=== PATIENT | female | born 1995 | race Caucasian/White ===

== ENCOUNTER 2016-04-28 17:31 | Inpatient (IN) | payer OTHER ==
[~2016-04-28] VITALS: Ht 165.1 cm; Wt 86.8 kg
[2016-04-28 17:39] VITALS: Ht 165.1 cm; Wt 86.8 kg
[2016-04-28 17:40] VITALS: BP 109/59; PULSE 83; RESP 18
--- NOTE | 2016-04-28 19:10 | RADRPT ---
PROCEDURE: US OB. US OB Estimated Weight CLINICAL INDICATION: Absent heart tones TECHNIQUE: Multiple sonographic images of the pelvis were obtained. The images were reviewed on a PACS workstation. COMPARISON: No prior studies are available for comparison. FINDINGS: There is a single viable intrauterine gestation. Cardiac activity is not detected. There is a breech presentation. Measurements were made in order to determine age. The results are as follows: BPD =5.1 cm. HC =18.6 cm. AC =29.6 cm. FL =3.7 cm. Estimated gestational age of approximately 24 weeks and 3 days. The estimated date of delivery is 08/15/2016. Estimated delivery date by last menstrual period 07/11 The EFW = 1116 grams . There is ascites in the abdomen. There is a large complex fluid collection involving the head and n katie, measuring up to 10 by 7 cm. The placenta is posterior, grade 0. There is no evidence for an abruption or placenta previa. IMPRESSION: 1. Absent heart tones, compatible with failed . 2. Ascites within the abdomen, suspicious for hydrops fetalis. There is a complex fluid husam ection in the head neck region likely reflecting hydrops as well, 10 x 7 cm. RPTAT: HBST .Jesus Muñiz MD, MD Date Time Electronically viewed and signed by .Jesus Muñiz MD, on 04/28/2016 19:09 .T/
[2016-04-28 19:58] LABS: ADD SCAN DIFF NO
[2016-04-28 20:01] LABS: BASOPHILS % 0.2 % (0.0-2.0); EOSINOPHILS # 0.1 10^3/ul (0.0-0.5); EOSINOPHILS % 0.8 % (0.0-7.0); HEMATOCRIT 31.8 % (37.0-47.0); HEMOGLOBIN 10.9 g/dl (12.0-16.0); LYMPHOCYTES # 1.4 10^3/ul (0.8-2.9); LYMPHOCYTES % 16.6 % (18.0-55.0); MEAN CORPUSCULAR HEMOGLOBIN 31.9 pg (29.0-33.0); MEAN CORPUSCULAR HGB CONC 34.3 g/dl (32.0-37.0); MEAN PLATELET VOLUME 11.3 fl (7.4-10.4); MONOCYTE # 0.7 10^3/ul (0.3-0.9); MONOCYTES % 7.7 % (0.0-13.0); NEUTROPHIL # 6.3 10^3/ul (1.6-7.5); NEUTROPHILS % 73.6 % (30.0-74.0); PLATELET COUNT 212 10^3/UL (140-415); RED BLOOD COUNT 3.42 10^6/ul (4.20-5.40); RED CELL DISTRIBUTION WIDTH 12.6 % (11.5-14.5); WHITE BLOOD COUNT 8.5 10^3/ul (4.8-10.8)
[2016-04-28 20:13] LABS: INR 0.94; PARTIAL THROMBOPLASTIN TIME 27.7 Sec (25.0-35.0); PROTIME 12.6 Sec (12.2-14.2)
[2016-04-28 20:18] LABS: ALBUMIN 3.8 g/dl (3.3-4.9)
[2016-04-28 20:19] LABS: CHLORIDE 104 mmol/L (97-110); POTASSIUM 3.6 mmol/L (3.5-5.1); SODIUM 141 mmol/L (135-144)
[2016-04-28 20:21] LABS: ALBUMIN/GLOBULIN RATIO 1.15; ALKALINE PHOSPHATASE 123 IU/L (42-121); ANION GAP 17 (8-16); ASPARTATE AMINO TRANSFERASE 22 IU/L (15-46); BILIRUBIN,INDIRECT 0.5 mg/dl (0-1.1); BILIRUBIN,TOTAL 0.5 mg/dl (0.2-1.3); CARBON DIOXIDE 24 mmol/L (21-31); CREATININE 0.45 mg/dl (0.44-1.00); TOTAL PROTEIN 7.1 g/dl (6.1-8.1)
[2016-04-28 20:22] LABS: ALANINE AMINOTRANSFERASE 18 IU/L (13-69); BLOOD UREA NITROGEN 7 mg/dl (7-20); GLUCOSE 77 mg/dl (70-220)
[2016-04-28 20:29] LABS: ADD UMIC YES; URINE BILIRUBIN (Dip) NEGATIVE (NEGATIVE); URINE BLOOD (Dip) NEGATIVE (NEGATIVE); URINE COLOR LT. YELLOW (YELLOW); URINE GLUCOSE (Dip) NEGATIVE (NEGATIVE); URINE KETONES (Dip) NEGATIVE (NEGATIVE); URINE LEUKOCYTE ESTERASE (Dip) 2+ (NEGATIVE); URINE NITRITE (Dip) NEGATIVE (NEGATIVE); URINE TOTAL PROTEIN (Dip) NEGATIVE (NEGATIVE); URINE UROBILINOGEN (Dip) 0.2 E.U./dL (0.1-1.0)
[2016-04-28 20:44] LABS: BACTERIA,URINE MODERATE; SQUAMOUS EPITHELIAL CELL,UR MODERATE; URINE RBCS 0-2 /HPF (0)
[2016-04-28] MEDS ORDERED: OXYTOCIN 30 UNITS/LR 500 ML IV PRN (21:30)
[2016-04-28] MEDS ORDERED: LACTATED RINGER'S 1,000 ML IV PRN (21:30)
[2016-04-28] MEDS ORDERED: IBUPROFEN 600 MG TAB PO PRN (21:30)
[2016-04-28] MEDS ORDERED: ACETAMINOPHEN/CODEINE #3 TAB PO PRN (21:30)
[2016-04-28] MEDS ORDERED: METHYLERGONOVINE 0.2 MG INJ IM PRN (21:30)
[2016-04-28] MEDS ORDERED: MISOPROSTOL 200 MCG TAB PR PRN (21:30)
[2016-04-28] MEDS ORDERED: CARBOPROST 250 MCG INJ IM PRN (21:30)
[2016-04-28] MEDS ORDERED: OXYTOCIN 30 UNITS/LR 500 ML IV SCH ×2 (21:30)
[2016-04-28] MEDS ORDERED: LIDOCAINE 1% (MPF) 30 ML INJ INJ PRN (21:30)
[2016-04-28] MEDS: LACTATED RINGER'S 1,000 ML IV SCH (21:51)
--- NOTE | 2016-04-28 22:11 | HP ---
Date/Time of Note Date/Time of Note DATE: 04/28/16 TIME: 22:11 OB - History Hx of Present Free Text/Dictation Patient is here 20 years old here today was sent from the office Noted to have demise. JONAH: by her reported JONAH as well as ultrasound at [facility] She had a visit at Dr. Quesada in his office and was found there is no heart beat. Patient was then presented to the hospital for evaluation. Patient started her care first with Dr. Ibrahim. Then lost insurance. after received insurance presented to Dr. Quesada office. She had still issues for her visit coverage due to insurance. As a courtesy she had a heart tone that could not been found. She was informed about demise. Patient reports had a diagnosis for cardiac abnormality in early . She had an official ultrasound here at [facility] that confirmed IUFD as well as Hydrops. Patient had not limited care. She was noted to be after an episode of drug usage when she had been sick and took to ED. She was informed that she is about 2 weeks . She was diagnosed with polysubstance abuse. She admits that she has been using lots of weeds and speed prior to , but denies using any after she noted she is . She was diagnosed with cardiac abnormalities with [facility] prior to change her insurance. Estimated Due Date: Aug 07, 2016 : 1 Para: 0 Spontaneous : 0 Therapeutic : 0 Care: Limited Care Ultrasounds: Abnormal US findings Abnormal Ultrasound Findings: demise and Hydrops Other Concerns: cardiac abnormality demise Poly Substance abuse in Past Family/Social History * Past Medical, Surgical, Family and Obstetric Histories reviewed from chart. OB Admission Exam Vital Signs Vital Signs Vital Signs Date Time Temp Pulse Resp B/P Pulse Ox O2 Delivery O2 Flow Rate FiO2 04/28/16 17:40 97.7 83 18 109/59 Room Air Physical Exam HEENT: WNL Heart: Rhythm Normal Lungs: Clear Abdomen: WNL Extremities: Normal Cervical Dilatation: 1cm Effacement: Other (60) Station: Ballotable Membranes: Intact (No heart tone) Contractions on Admission: None Last 72 hourBlood Glucose PROCEDURE: US OB. US OB Estimated Weight CLINICAL INDICATION: Absent heart tones TECHNIQUE: Multiple sonographic images of the pelvis were obtained. The images were reviewed on a PACS workstation. COMPARISON: No prior studies are available for comparison. FINDINGS: There is a single viable intrauterine gestation. Cardiac activity is not detected. There is a breech presentation. Measurements were made in order to determine age. The results are as follows: BPD = 5.1 cm. HC = 18.6 cm. AC = 29.6 cm. FL = 3.7 cm. Estimated gestational age of approximately 24 weeks and 3 days. The estimated date of delivery is 08/15/2016. Estimated delivery date by last menstrual period 08/07/2016 The EFW = 1116 grams . There is ascites in the abdomen. There is a large complex fluid collection involving the head and neck, measuring up to 10 by 7 cm. The placenta is posterior, grade 0. There is no evidence for an abruption or placenta previa. IMPRESSION: 1. Absent heart tones, compatible with failed . 2. Ascites within the abdomen, suspicious for hydrops fetalis. There is a complex fluid collection in the head neck region likely reflecting hydrops as well, 10 x 7 cm. Last 72 hours Lab Results CBC & BMP 04/28/16 19:35 Liver Function Test 04/28/16 19:35 Alanine Aminotransferase (ALT/SGPT) 18 Albumin 3.8 Alkaline Phosphatase 123 H Aspartate Amino Transf (AST/SGOT) 22 Direct Bilirubin 0.00 Total Protein 7.1 OB Assessment/Plan Other Assessment: demise Severe Hydrops History of cardiac abnormality Poly substance abuse , Speed and [place]. Other plan: Discussed with the patient about all the options after receiving normal coags including fibrinogen and FDP including expectant management for the next 2 weeks vs induction of labor. Risks and benefits of each discussed with the patient. Risks of coagulopathy with skilled nursing expectant management with demise discussed. Desires to proceed with induction of labor. Consider cytotec 400 mcg Cytotec every 3 hours x 5 doses sublingual Anticipate Work up for demise, including , RPR, TSH, HbA1c, Parvovirus, placenta to path and culture. Brooks test. Fetus to autopsy as well as cord for tox screen.BILLY. JONH CRWES MD Apr 28, 2016 22:11
--- NOTE | 2016-04-28 22:20 | TRIAGE ---
OB Triage Datetime Report Generated by CPN: 04/28/2016 22:19 Datetime: 04/28/2016 21:51 Stage of : Labor Datetime: 04/28/2016 20:42 Vaginal Exam Dilatation (cms): 1.0 Effacement (%): 50 Station: -4 Exam By: DR. ARDALAN Datetime: 04/28/2016 20:10 Pain Assessment Pain Scale: 5 Pain Presence: Intermittent Pain Type: Cramping Pain Relief Measures: Comfort Measures Datetime: 04/28/2016 20:00 Labor Evaluation Frequency: 2-4 Monitor Mode: External Duration (sec)2399: 40-50 Pattern: Normal: <= 5 Contractions in 10 Minutes Heart Rate FHR Baseline Rate: 0 Comments: DEMISE Datetime: 04/28/2016 19:08 Labor Evaluation Frequency: OCCAS Monitor Mode: External Duration (sec)2399: 40-70 Quality: Mild Pattern: Normal: <= 5 Contractions in 10 Minutes Resting Tone [place]: Relaxed Datetime: 04/28/2016 18:19 Labor Evaluation Frequency: OCCAS Monitor Mode: External Duration (sec)2399: 40-60 Quality: Mild Pattern: Normal: <= 5 Contractions in 10 Minutes Resting Tone [place]: Relaxed Datetime: 04/28/2016 17:46 Assessment Type: Admission Assessment Maternal Assessment Level of Consciousness: Fully Conscious DTR's/Clonus: DTRs 2+; No Clonus Headache: Denies Blurred Vision: No Respiratory Effort: Unlabored; Regular Rhythm; Equal Expansion Breath Sounds, Left: Clear and Equal Breath Sounds, Right: Clear and Equal Nausea/Vomiting: Denies RUQ Epigastric Pain: Denies Lower Extremities Edema: None Degree: None Upper Extremities Edema: None Degree: None Facial Edema: None Fall Risk Assessment History of Falling: (0) No Secondary Diagnosis: (0) No Ambulatory Aid: (0) Bedrest/Nurse Assist IV Therapy: (0) No Gait: (0) Normal/Bedrest/Immobile Mental Status: (0) Oriented to Own Ability Fall Score: 0 Fall Risk Score Definition: No Risk: No action required Datetime: 04/28/2016 17:45 EGA: 25.4 Datetime: 04/28/2016 17:42 Time of Arrival: 04/28/2016 17:10 Arrived By: Ambulatory Arrived From: Office Chief Complaint: NO HEART TONES Movement: Absent Contractions: Denies/Absent Rupture of Membranes: Denies Vaginal Bleeding: None Vaginal Discharge: Denies Recent Sexual Intercouse: Denies Abdominal Trauma: Not Applicable Patient Complaints: Other Time Provider Notified: 04/28/2016 17:46 Provider Notified: DR GAN Initial Plan: PENNIE TORRES WITH [facility]
[2016-04-28] MEDS ORDERED: MISOPROSTOL 200 MCG TAB SL SCH (23:00)
[2016-04-29] MEDS ORDERED: MISOPROSTOL 100 MCG TAB PO SCH (01:00)
[2016-04-29 02:23] LABS: BARBITURATES Negative (NEGATIVE); BENZODIAZEPINES Negative (NEGATIVE); CANNABINOIDS Negative (NEGATIVE); COCAINE Negative (NEGATIVE); OPIATES Negative (NEGATIVE)
[2016-04-29] MEDS: MISOPROSTOL 200 MCG TAB SL SCH ×2 (04:54→08:59)
[2016-04-29] MEDS: LACTATED RINGER'S 1,000 ML IV SCH ×2 (04:56→12:31)
[2016-04-29] MEDS: MISOPROSTOL 200 MCG TAB PO SCH ×2 (12:35→15:10)
[2016-04-29] MEDS: BUTORPHANOL 2 MG INJ IV PRN ×2 (15:01→17:44)
[2016-04-29] MEDS ORDERED: DOXYCYCLINE 100 MG TAB PO ONE ×2 (17:00)
[2016-04-29] MEDS ORDERED: MISOPROSTOL 200 MCG TAB PO ONE (17:00)
--- NOTE | 2016-04-29 20:43 | LDN ---
Date/Time of Note Date/Time of Note DATE: 04/29/16 TIME: 20:36 Delivery Summary Pt pushed to delivery of a demised edematous female from doubling footling breech presentation. The cord was doubly clamped and cut. The placenta then was noted to be in the vagina and was removed intact. Fundus firm. Perineum intact. Minimal bleeding. EBL 75mL. Weeks of Gestation 25+5 Placenta Delivered: Manually (removed from the vagina) Episiotomy?: No Anesthesia type: None Estimated blood loss: 75 Sponge & Needle done & correct: Yes All needle counts correct: Yes Any foreign bodies felt in the: No Problems: Infant Delivery Information Sex Sex: female Apgars 1 Minute: 0 5 Minute: 0 Suctioning Nose & mouth suctioned at matthew: No Delee suction performed: No Umbilical Cord Cord presentations: no nuchal cord Cord Blood was obtained: No Mother & Baby Disposition Disposition Mom & Baby to Maternity; Good: No Mom transferred to: Antepartum Baby to NICU: No (Baby to Pathology along with the placenta) RODRIGO MANRIQUEZ MD Apr 29, 2016 20:43
[2016-04-29] MEDS ORDERED: LACTATED RINGER'S 1,000 ML IV* SCH (20:46)
[2016-04-29] MEDS ORDERED: CARBOPROST 250 MCG INJ IM PRN (21:00)
[2016-04-29] MEDS ORDERED: BENZOCAINE 20% 56 ML SPRAY TOP PRN (21:00)
[2016-04-29] MEDS ORDERED: OXYTOCIN 30 UNITS/LR 500 ML IV PRN (21:00)
[2016-04-29] MEDS ORDERED: SENNA/DOCUSATE NA (8.6MG/50MG) TAB PO PRN (21:00)
[2016-04-29] MEDS ORDERED: MISOPROSTOL 200 MCG TAB PR PRN (21:00)
[2016-04-29] MEDS ORDERED: ACETAMINOPHEN 325 MG TAB PO PRN (21:00)
[2016-04-29] MEDS ORDERED: ZOLPIDEM 5 MG TAB PO PRN (21:00)
[2016-04-29] MEDS ORDERED: ONDANSETRON 4 MG INJ IV PRN (21:00)
[2016-04-29] MEDS ORDERED: METHYLERGONOVINE 0.2 MG INJ IM PRN (21:00)
[2016-04-29] MEDS ORDERED: DIPHENHYDRAMINE 50 MG INJ IV PRN (21:00)
[2016-04-29] MEDS ORDERED: DIBUCAINE 1% 30 GM OINT PR PRN (21:00)
[2016-04-30] MEDS ORDERED: IBUPROFEN 600 MG TAB PO SCH
[2016-04-30 06:32] LABS: ADD SCAN DIFF NO
[2016-04-30 06:37] LABS: BASOPHILS % 0.2 % (0.0-2.0); EOSINOPHILS # 0.1 10^3/ul (0.0-0.5); EOSINOPHILS % 0.9 % (0.0-7.0); HEMATOCRIT 28.9 % (37.0-47.0); HEMOGLOBIN 9.8 g/dl (12.0-16.0); LYMPHOCYTES # 1.7 10^3/ul (0.8-2.9); LYMPHOCYTES % 16.8 % (18.0-55.0); MEAN CORPUSCULAR HEMOGLOBIN 31.5 pg (29.0-33.0); MEAN CORPUSCULAR HGB CONC 33.9 g/dl (32.0-37.0); MEAN CORPUSCULAR VOLUME 92.9 fl (72.0-104.0); MEAN PLATELET VOLUME 11.6 fl (7.4-10.4); MONOCYTE # 1.1 10^3/ul (0.3-0.9); MONOCYTES % 10.9 % (0.0-13.0); NEUTROPHIL # 7.1 10^3/ul (1.6-7.5); NEUTROPHILS % 70.6 % (30.0-74.0); PLATELET COUNT 180 10^3/UL (140-415); RED BLOOD COUNT 3.11 10^6/ul (4.20-5.40); RED CELL DISTRIBUTION WIDTH 12.5 % (11.5-14.5); WHITE BLOOD COUNT 10.1 10^3/ul (4.8-10.8)
--- NOTE | 2016-04-30 08:27 | PD.PPDC ---
BRAID MAKER Discharge Instruction Diagnosis Final Diagnosis: Normal Spontaneous Vaginal Delivery of Demised 25wk fetus with Hydrops Condition Patient Condition: Good Diet Diet: Resume Regular Diet Activity/Restrictions Activity: Normal Activity Restrictions: No Sexual Activity Nothing in the Vagina No [place] No Tampons, douche Follow-up Follow-up with Physician: 1, Week/Weeks Return to clinic for RELIGION PROFESSOR Instructions: Fever greater than 101 Chills Worsening abdominal pain Excessive Vaginal Bleeding More than 2 pads per hour Unable to tolerate diet OB Instructions: Breast Tenderness Depression Blurried Vision Headache RODRIGO MANRIQUEZ MD Apr 30, 2016 08:27
--- NOTE | 2016-04-30 08:29 | DS ---
Date/Time of Note Date/Time of Note DATE: 04/30/16 TIME: 08:27 Obstetrical Discharge Record Final Diagnosis Final Diagnosis: delivered Other Final Diagnosis Demise at 25+5wks GA Hydrops Fetalis Vaginal Delivery Obstetrical Delivery: Spontaneous Demise Demise: Antepartum, at >20 weeks Complications Induction: Yes Condition on Discharge Physical Assessment Last Vitals: T 98.8 BP 131/56 P 68 Admission Hgb 10.9 -> EBL 75ml ->PPD#1 Hgb 9.8 Voiding: Yes Breast: Soft, non-tender Fundus: Firm Calf Tenderness: No Patient Condition: Good RODRIGO MANRIQUEZ MD Apr 30, 2016 08:29
[2016-04-30 14:49] LABS: RUBELLA ANTIBODY - IGG 1.23 index
--- NOTE | 2016-04-30 16:21 | PN ---
Date/Time of Note Date/Time of Note DATE: 04/30/16 TIME: 16:10 OB Subjective Subjective Subjective April 29, 2016 OB consult This patient is a 20 years old 1 para 0 who was admitted to the emergency room with a diagnosis of demise This patient apparently was being followed by Dr. Lopez on patient by . However due to lack of insurance she had limited workup when she came to the emergency room she did not have any heart tone She has a history of drug use before and during early . When she was admitted inspector material disposition of April 28 after limited workup she was induced with Cytotec 400 mg every 5 hours. When I saw her in the morning she was having contractions On examination she she is a well-developed well nourished lady Her ear nose throat appear to be normal neck was normal no neck vein distention no thyromegaly no lymph node enlargement anywhere Chest was clear to auscultation her precaution Her BP was around 120/75 as I mentioned on pelvic examination this morning her cervix was about 2-3 cm 90% effaced membrane was intact and bulging On ultrasound study as I mentioned there was no heart tone and by measuring the gross of the baby estimated date of confinement on this baby was reported as 08/15/2016 which would make her 24 weeks and 3 days. Placenta was fundal and the fetus have evidence of a hydrocephalus and hydramnios both but no other abnormality could be identified with an ultrasound and ultrasound study Heart normal sinus rhythm By about 7:00 patient was about 5-6 cm the fetus is post. Plan is to continue to Cytotec induction to the delivery of the fetus Laboratory Tests Test 04/30/16 05:46 White Blood Count 10.110^3/ul Red Blood Count 3.1110^6/ul Hemoglobin 9.8g/dl Hematocrit 28.9% Mean Corpuscular Volume 92.9fl Mean Corpuscular Hemoglobin 31.5pg Mean Corpuscular Hemoglobin Concent 33.9g/dl Red Cell Distribution Width 12.5% Platelet Count 25776^3/UL Mean Platelet Volume 11.6fl Neutrophils % 70.6% Lymphocytes % 16.8% Monocytes % 10.9% Eosinophils % 0.9% Basophils % 0.2% Nucleated Red Blood Cells % 0.0/100WBC Neutrophils # 7.110^3/ul Lymphocytes # 1.710^3/ul Monocytes # 1.110^3/ul Eosinophils # 0.110^3/ul Basophils # 0.010^3/ul Nucleated Red Blood Cells # 0.010^3/ul Current Medications Medications (Trade) Dose Ordered Sig/Gui Route PRN Reason Start Time Stop Time Status Last Admin Dose Admin Lactated Ringer's (Lr) 1,000 ml @ 125 mls/hr Q8H IV 04/28/16 21:13 04/29/16 20:50 DC 04/29/16 12:31 Butorphanol Tartrate (Stadol) 2 mg Q2H PRN IV PAIN 04/28/16 21:30 04/29/16 20:50 DC 04/29/16 17:44 Lidocaine 30 ml 30 ml ONCE PRN INJ EPISIOTOMY/TEARING 04/28/16 21:30 04/29/16 20:50 DC Oxytocin/Lactated Ringer's 500 ml @ 125 mls/hr ONCE -MAY REPEAT X1 IV 04/28/16 21:30 04/29/16 20:50 DC 04/29/16 20:31 Oxytocin/Lactated Ringer's 500 ml @ 125 mls/hr ONCE IV 04/28/16 21:30 04/29/16 20:50 DC 04/29/16 20:46 Ibuprofen (Motrin) 600 mg ONCE PRN PO Mild Pain (Pain Score 1-3) 04/28/16 21:30 04/29/16 20:50 DC 04/29/16 14:17 Acetaminophen/ Codeine Phosphate 2 tab 2 tab ONCE PRN PO Moderate to Severe Pain (4-10) 04/28/16 21:30 04/29/16 20:50 DC Lactated Ringer's 1,000 ml @ 2,000 mls/hr Q30M PRN IV PRE-EPIDURAL BOLUS 04/28/16 21:30 04/29/16 20:50 DC 04/29/16 19:43 Oxytocin/Lactated Ringer's 500 ml @ 0 mls/hr ONCE PRN IV For Hemorrhage Management 04/28/16 21:30 04/29/16 20:50 DC Methylergonovine Maleate (Methergine) 0.2 mg ONCE PRN IM VAGINAL BLEEDING 04/28/16 21:30 04/29/16 20:50 DC Carboprost Tromethamine (Hemabate) 250 mcg ONCE PRN IM VAGINAL BLEEDING 04/28/16 21:30 04/29/16 20:50 DC Misoprostol (Cytotec) 1,[address] VAGINAL BLEEDING 04/28/16 21:30 04/29/16 20:50 DC Misoprostol (Cytotec) 100 mcg Q4 PO 04/29/16 01:00 04/29/16 01:00 DC Misoprostol (Cytotec) 400 mcg Q3H SL 04/28/16 23:00 04/29/16 01:57 DC 04/29/16 01:42 Misoprostol (Cytotec) 400 mcg Q3H SL 04/29/16 06:00 04/29/16 09:59 DC 04/29/16 08:59 Misoprostol (Cytotec) 200 mcg Q3 PO 04/29/16 12:00 04/29/16 20:50 DC 04/29/16 15:10 Doxycycline Hyclate (Vibramycin) 100 mg ONCE ONCE PO 04/29/16 17:00 04/29/16 21:42 DC 04/29/16 17:18 Doxycycline Hyclate (Vibramycin) 200 mg ONCE ONCE PO 04/29/16 17:00 04/29/16 21:42 DC Misoprostol 400 mcg 400 mcg ONCE ONCE PO 04/29/16 17:00 04/29/16 17:06 DC 04/29/16 17:16 Lactated Ringer's (Lr) 1,000 ml @ 125 mls/hr Q8H IV* 04/29/16 20:46 04/30/16 01:03 DC Ibuprofen (Motrin) 600 mg Q6 PO 04/30/16 00:00 04/30/16 12:47 DC Ondansetron HCl (Zofran Inj) 4 mg Q6H PRN IV NAUSEA AND/OR VOMITING 04/29/16 21:00 04/30/16 12:47 DC Diphenhydramine HCl (Benadryl) 25 mg Q6H PRN IV PRURITUS 04/29/16 21:00 04/30/16 12:47 DC Zolpidem Tartrate (Ambien) 5 mg QHS PRN PO INSOMNIA 04/29/16 21:00 04/30/16 12:47 DC Senna/Docusate Sodium (Senokot-S) 1 tab BID PRN PO CONSTIPATION 04/29/16 21:00 04/30/16 12:47 DC Benzocaine (Dermoplast [place]) 1 spray BEDSIDE MEDICATION PRN TOP HEMORRHOID/EPISIOTMY PAIN 04/29/16 21:00 04/30/16 12:47 DC Dibucaine (Nupercainal) 1 applic BEDSIDE MEDICATION PRN CT HEMORRHOID/EPISIOTMY PAIN 04/29/16 21:00 04/30/16 12:47 DC Diphtheria/ Tetanus/Acell Pertussis (Adacel) 0.5 ml ONCE ONCE IM* 05/01/16 09:00 05/01/16 09:00 DC Acetaminophen 650 mg 650 mg Q4H PRN PO ELEVATED TEMPERATURE 04/29/16 21:00 04/30/16 12:47 DC Oxytocin/Lactated Ringer's 500 ml @ 0 mls/hr ONCE PRN IV For Hemorrhage Management 04/29/16 21:00 04/30/16 12:47 DC Methylergonovine Maleate (Methergine) 0.2 mg ONCE PRN IM VAGINAL BLEEDING 04/29/16 21:00 04/30/16 12:47 DC Carboprost Tromethamine (Hemabate) 250 mcg ONCE PRN IM VAGINAL BLEEDING 04/29/16 21:00 04/30/16 12:47 DC Misoprostol (Cytotec) 1,[address] VAGINAL BLEEDING 04/29/16 21:00 04/30/16 12:47 DC . At this time the patient is not febrile and very little amount of bleeding. JESUS MANUEL CHAMBERS MD Apr 30, 2016 16:20
[2016-05-01] MEDS ORDERED: DIPHTH/TET/ACEL PERTUSS (ADULT) 0.5 ML VIAL IM* ONE (09:00)
== END 2016-04-30 11:42 | disposition home or self-care (01) | DRG 781 ==
LOC: OBT 17:31 → L-D 17:32 → OBT 21:15 → L-D 21:15 → OBG 04-29 23:35
PROC: 10A07ZX Abortion of Products of Conception, Abortifacient, Via Natural or Artificial Opening (ICD-10-PCS; principal; 2016-04-29)
DX: O36.4XX0 Maternal care for intrauterine death, not applicable or unspecified (principal); O99.322 Drug use complicating pregnancy, second trimester; O36.22X0 Maternal care for hydrops fetalis, second trimester, not applicable or unspecified; Z3A.25 25 weeks gestation of pregnancy; F12.10 Cannabis abuse, uncomplicated; F15.10 Other stimulant abuse, uncomplicated; O32.8XX0 Maternal care for other malpresentation of fetus, not applicable or unspecified
CPT/HCPCS: 76815; 80053; 80307; 81001; 81003; 83036; 84443; 85025; 85384; 85610; 85730; 86592; 86703; 86762; 86885; 86900; 86901; 87070; 87086; 87340; 87496; 88307; G0463; J2590; J7120

== ENCOUNTER 2016-05-04 00:04 | Emergency (ER) | payer OTHER ==
[~2016-05-04] VITALS: Ht 12.7 cm; Wt 85.5 kg
[2016-05-04 00:18] VITALS: Ht 12.7 cm; Wt 85.5 kg
--- NOTE | 2016-05-04 06:30 | ERD ---
ER Documentation Chief Complaint Date/Time DATE: 05/04/16 TIME: 06:27 Chief Complaint right breast pain x 2 days HPI Patient is a 20-year-old female who was approximately 25 weeks when she experienced demise on April 29. She denies any abdominal pain, vaginal bleeding, fever, dizziness, urinary symptoms. Patient is complaining that her breasts are producing milk and she has pain in the left breast and it feels hard. She denies any abnormal discharge. She has appointment with OB doctor on Thursday. ROS All systems reviewed and are negative except as per history of present illness. Medications Home Meds No Active Prescriptions or Reported Meds Allergies Allergies: Coded Allergies: No Known Allergy (Unverified , 05/04/16) PMhx/Soc Medical and Surgical Hx: pt denies Surgical Hx Anesthesia Reaction: No Hx Neurological Disorder: No Hx Respiratory Disorders: No Hx Cardiac Disorders: No Hx Psychiatric Problems: No Hx Miscellaneous Medical Probl: No Hx Alcohol Use: No Hx Substance Use: Yes (: LAST USED METH) Hx Tobacco Use: No Smoking Status: Never smoker FmHx Family History: No diabetes Physical Exam Vitals Vital Signs Date Time Temp Pulse Resp B/P Pulse Ox O2 Delivery O2 Flow Rate FiO2 05/04/16 00:18 98.2 67 20 131/64 100 Physical Exam General: well developed, well nourished, alert, nontoxic, no distress Head: normocephalic, atraumatic Respiratory: Clear to auscaultation bilaterally, speaks in full sentences, no use of accesory muscles or labored breathing, no rales, ronchi, or wheezing Cardiovascular: RRR, No murmurs GI: soft, non tender, non distended, negative murphys sign, negative mcburneys point tenderness, no cva tenderness bilaterally, no rebound or guarding breast: Performed with female copier and printer field technician KALI Miller, bilateral breast nonerythematous, nonindurated, no abnormal discharge, nontender to palpation Procedures/MDM Patient presents complaining that she has mild breast pain as well as milk production status post demise. Vital signs are within normal limits and she is well-appearing in no distress. She has no abdominal pain or OB complaints. She has appointment with OB doctor on Thursday. Examination is benign there is no evidence of infection or mass. Patient was discharged and instructed to apply warm compresses and follow-up with OB which she has appointment on Thursday.Recommended this patient follow up with her primary care doctor within 48 hours or return to the emergency room for any worsening of symptoms. However this time I do believe there is suitable for outpatient management. I answered all their questions and they agreed with the plan and were discharged home. Departure Diagnosis: Primary Impression: Breast pain Condition: Stable FRANDY PAGAN PA-C May 04, 2016 06:30
== END 2016-05-04 06:54 | disposition home or self-care (01) ==
LOC: FTE 00:04
DX: N64.4 Mastodynia (principal)
CPT/HCPCS: 99282

== ENCOUNTER 2016-10-16 11:10 | Emergency (ER) | payer OTHER ==
[~2016-10-16] VITALS: Ht 165.1 cm; Wt 91.0 kg
[2016-10-16 11:13] VITALS: Ht 165.1 cm; Wt 91.0 kg
[2016-10-16] MEDS ORDERED: ACETAMINOPHEN 500 MG TAB PO STA (12:57)
[2016-10-16] MEDS ORDERED: IBUPROFEN 600 MG TAB PO ONE (13:00)
[2016-10-16] MEDS ORDERED: AMO500 PO (14:00)
[2016-10-16] MEDS ORDERED: IBUP-1542 PO (14:00)
--- NOTE | 2016-10-16 14:07 | ERD ---
ER Documentation Chief Complaint Date/Time DATE: 10/16/16 TIME: 14:06 Chief Complaint SWOLLEN TONSILS,FEVER 3 DAYS HPI 21-year-old female comes in with tonsils that have been swollen with pain, fever for 3 days. She denies cough, runny nose, body aches, vomiting, diarrhea. ROS All systems reviewed and are negative except as per history of present illness. Medications Home Meds Active Scripts Ibuprofen* (Motrin*) 600 Mg Tab, 600 MG PO Q6, #30 TAB Prov:ZANDER MICHELLE PA-C 10/16/16 Amoxicillin* (Amoxicillin*) 500 Mg Cap, 500 MG PO TID for 7 Days, CAP Prov:ZANDER MICHELLE PA-C 10/16/16 Allergies Allergies: Coded Allergies: No Known Allergy (Unverified , 05/04/16) PMhx/Soc Medical and Surgical Hx: pt denies Medical Hx, pt denies Surgical Hx Anesthesia Reaction: No Hx Neurological Disorder: No Hx Respiratory Disorders: No Hx Cardiac Disorders: No Hx Psychiatric Problems: No Hx Miscellaneous Medical Probl: No Hx Alcohol Use: No Hx Substance Use: No (: LAST USED METH) Hx Tobacco Use: No Smoking Status: Former smoker Physical Exam Vitals Vital Signs Date Time Temp Pulse Resp B/P Pulse Ox O2 Delivery O2 Flow Rate FiO2 10/16/16 11:13 101.8 89 18 121/67 98 Physical Exam General: Well-developed, well-nourished. The patient appears in no acute distress. HEENT: Head is normocephalic, atraumatic. No scleral icterus. Bilateral tonsillar exudate. No trismus voice changes or drooling. Neck: Supple. Nontender. Positive tender cervical lymphadenopathy Lungs: Clear to auscultation. Normal air movement. Heart: Regular rate and rhythm. S1 and S2 are normal. No murmurs, gallops, or rubs. Abdomen: Nondistended. Extremities: No clubbing or cyanosis. Moving extremities x 4. No weakness. Neurologic: Alert and oriented 3. No focal deficits. Normal speech and gait. Skin: Normal turgor. No rash or lesions. Results 24 hrs Current Medications Medications (Trade) Dose Ordered Sig/Gui Route PRN Reason Start Time Stop Time Status Last Admin Dose Admin Acetaminophen (Tylenol Tab) 1,000 mg ONCE STAT PO 10/16/16 12:57 10/16/16 12:58 DC 10/16/16 13:02 Ibuprofen (Motrin) 600 mg ONCE ONCE PO 10/16/16 13:00 10/16/16 13:01 DC 10/16/16 13:02 Procedures/MDM 21-year-old female presents with fever, cough, or exudate, lack of history of cough. She is febrile here was given Tylenol Motrin and reports he feeling much better. Although rapid strep is negative, patient exhibits 4 out of 4 center criteria, she will be treated as presumed strep pharyngitis based on the patient's clinical presentation. She is to recheck with her primary doctor in 2 days. There are no signs of any abscess, trismus, voice changes, or any airway obstructive process. Departure Diagnosis: Primary Impression: Acute pharyngitis Condition: Good Patient Instructions: Pharyngitis, Strep (Presumed) ZANDER MICHELLE PA-C Oct 16, 2016 14:07
== END 2016-10-16 14:07 | disposition home or self-care (01) ==
LOC: FTE 11:10
DX: J02.9 Acute pharyngitis, unspecified (principal); Z87.891 Personal history of nicotine dependence
CPT/HCPCS: 87880; Z7502; Z7610; 99283

== ENCOUNTER 2016-11-01 23:13 | Emergency (ER) | END 2016-11-02 02:07 | disposition home or self-care (01) | DX: J02.9 Acute pharyngitis, unspecified (principal); F17.210 Nicotine dependence, cigarettes, uncomplicated ==

== ENCOUNTER 2017-01-13 22:15 | Emergency (ER) | payer OTHER ==
[~2017-01-13] VITALS: Ht 165.1 cm; Wt 99.7 kg
[~2017-01-13 22:15] MED LIST: AMOX500C2 PO; FEXO180T61 PO; FLUT9.9S NASAL; IBUP-1542 PO; TYL500 PO
[2017-01-13 22:34] VITALS: Ht 165.1 cm; Wt 99.7 kg
--- NOTE | 2017-01-14 00:37 | ERD ---
ER Documentation Chief Complaint Chief Complaint Pelvic discomfort, Denies urinary symptoms. No VB HPI 21-year-old female presents to emergency department for complaints of pelvic pain that started today. Patient describes the pain as sharp pressure type pain , 5/10 scale, not better or worse with anything. Patient denies any fever chills. Patient denies any nausea vomiting. Patient denies any flank pain. Patient denies any hematuria or dysuria. ROS All systems reviewed and are negative except as per history of present illness. Medications Home Meds Active Scripts Fexofenadine Hcl* (Tisha*) 180 Mg Tablet, 180 MG PO DAILY, #30 TAB Prov:SAVITA NOVA 11/02/16 Fluticasone Propionate (Flonase Allergy Relief) 9.9 Ml [place].susp, 1 SPRAY NASAL BID, #1 BOTTLE TO EACH NOSTRIL Prov:SAVITA NOVA 11/02/16 Acetaminophen* (Tylenol*) 500 Mg Tab, 1000 MG PO Q6H Y for PAIN AND OR ELEVATED TEMP for 5 Days, TAB Prov:SAVITA NOVA 11/02/16 Ibuprofen* (Motrin*) 600 Mg Tab, 600 MG PO Q6, #30 TAB Prov:ZANDER MICHELLE PA-C 10/16/16 Amoxicillin* (Amoxicillin*) 500 Mg Cap, 500 MG PO TID for 7 Days, CAP Prov:ZANDER MICHELLE PA-C 10/16/16 Allergies Allergies: Coded Allergies: No Known Allergy (Unverified , 01/13/17) PMhx/Soc Medical and Surgical Hx: pt denies Medical Hx, pt denies Surgical Hx Anesthesia Reaction: No Hx Neurological Disorder: No Hx Respiratory Disorders: No Hx Cardiac Disorders: No Hx Psychiatric Problems: No Hx Miscellaneous Medical Probl: No Hx Alcohol Use: Yes (occassional) Hx Substance Use: No Hx Tobacco Use: No Smoking Status: Never smoker FmHx Family History: No coronary disease, No diabetes, No other Physical Exam Vitals Vital Signs Date Time Temp Pulse Resp B/P Pulse Ox O2 Delivery O2 Flow Rate FiO2 01/13/17 22:34 99.2 99 18 132/71 98 Physical Exam GENERAL: The patient is well developed and appropriate for usual state of health, in no apparent distress. CHEST: Clear to auscultation bilaterally. There are no rales, wheezes or rhonchi. HEART: Regular rate and rhythm. No murmurs, clicks, rubs or gallops. No S3 or S4. ABDOMEN: Soft, nontender and nondistended. Good bowel sounds. No rebound or guarding. No gross peritonitis. No gross organomegaly or masses. No Isaac sign or McBurney point tenderness. BACK: No midline or flank tenderness. EXTREMITIES: Equal pulses bilaterally. There is no peripheral clubbing, cyanosis or edema. No focal swelling or erythema. Full range of motion. Grossly neurovascularly intact. NEURO: Alert and oriented. Cranial nerves 2-12 intact. Motor strength in all 4 extremities with 5/5 strength. Sensation grossly intact. Normal speech and gait. SKIN: There is no apparent rash or petechia. The skin is warm and dry. HEMATOLOGIC AND LYMPHATIC: There is no evidence of excessive bruising or lymphedema. No gross cervical, axillary, or inguinal lymphadenopathy. Result Diagram: 01/14/17 0039 01/14/17 0039 Results 24 hrs Laboratory Tests Test 01/14/17 00:39 01/14/17 01:00 White Blood Count 10.310^3/ul Red Blood Count 3.8310^6/ul Hemoglobin 11.6g/dl Hematocrit 34.0% Mean Corpuscular Volume 88.8fl Mean Corpuscular Hemoglobin 30.3pg Mean Corpuscular Hemoglobin Concent 34.1g/dl Red Cell Distribution Width 12.1% Platelet Count 84691^3/UL Mean Platelet Volume 11.3fl Neutrophils % 65.8% Lymphocytes % 24.6% Monocytes % 7.0% Eosinophils % 1.6% Basophils % 0.4% Nucleated Red Blood Cells % 0.0/100WBC Neutrophils # 6.810^3/ul Lymphocytes # 2.510^3/ul Monocytes # 0.710^3/ul Eosinophils # 0.210^3/ul Basophils # 0.010^3/ul Nucleated Red Blood Cells # 0.010^3/ul Sodium Level 146mmol/L Potassium Level 3.9mmol/L Chloride Level 105mmol/L Carbon Dioxide Level 28mmol/L Anion Gap 17 Blood Urea Nitrogen 13mg/dl Creatinine 0.64mg/dl Glucose Level 113mg/dl Calcium Level 10.0mg/dl Total Bilirubin 0.4mg/dl Direct Bilirubin 0.00mg/dl Indirect Bilirubin 0.4mg/dl Aspartate Amino Transf (AST/SGOT) 30IU/L Alanine Aminotransferase (ALT/SGPT) 41IU/L Alkaline Phosphatase 82IU/L Total Protein 8.2g/dl Albumin 4.5g/dl Globulin 3.70g/dl Albumin/Globulin Ratio 1.21 Lipase 65U/L Urine Color YELLOW Urine Clarity CLEAR Urine pH 7.0 Urine Specific [place] 1.020 Urine Ketones NEGATIVEmg/dL Urine Nitrite NEGATIVEmg/dL Urine Bilirubin NEGATIVEmg/dL Urine Urobilinogen NEGATIVEmg/dL Urine Leukocyte Esterase NEGATIVELeu/ul Urine Microscopic RBC 1/HPF Urine Microscopic WBC 1/HPF Urine Bacteria FEW/HPF Urine Hemoglobin NEGATIVEmg/dL Urine Glucose NEGATIVEmg/dL Urine Total Protein NEGATIVEmg/dl PROCEDURE: CT Abdomen and pelvis without contrast. CLINICAL INDICATION: Abdominal pain. TECHNIQUE: CT scan of the abdomen and pelvis was performed on a multi- detector high-resolution CT scanner. Contiguous axial images were obtained from the lung bases to the ischial tuberosities without intravenous contrast. Coronal and sagittal reformatted images were also obtained. Images were reviewed on the PACS workstation. DICOM images are available. One or more of the following dose reduction techniques were used: - Automated exposure control. - Adjustment of the mA and/or kV according to patient size. - Use of iterative reconstruction technique. Exam CTD/vol = 22.73 mGy. Total exam DLP = 1334.05 mGy-cm. COMPARISON: None. FINDINGS: Evaluation of the lung bases demonstrates no pleural or parenchymal disease. Abdomen: The liver is normal in size. There is no focal mass or dilatation of the biliary tree. The gallbladder is not distended. The spleen, pancreas and bilateral adrenal glands are within normal limits. Bilateral kidneys are normal in size with no contour deforming mass identified. There is no radiopaque renal or ureteral calculus identified. There is no hydronephrosis or hydroureter. There is no retroperitoneal adenopathy. The abdominal aorta is of normal caliber. There is no abnormal bowel wall thickening or distension. There is no bowel obstruction or free air. A normal appendix is partially visualized. There is no diverticulosis or diverticulitis. There is no ascites. Pelvis: The bladder is unremarkable. The uterus and adnexa are within normal limits. There is no significant pelvic adenopathy or free fluid. Evaluation of the osseous structures demonstrates no suspicious lytic or blastic lesion. IMPRESSION: No acute abnormality identified within the abdomen and pelvis. .Payam Rosas MD, MD Date Time Electronically viewed and signed by .Payam Rosas MD, MD on 01/14/2017 01:49 .T/ CC: JEAN PIERRE HOLLAND PR SPECIALIST PROCEDURE: US Pelvis. CLINICAL INDICATION: Abdominal pain. Last menstrual period 01/02/2017 TECHNIQUE: Multiple sonographic images of the pelvis were obtained utilizing a transabdominal and endovaginal technique. The images were reviewed on a PACS workstation. COMPARISON: None. FINDINGS: The uterus measures 8 x 4.4 x 6.1 cm and is unremarkable. The thickness of the endometrium equals 3.1 mm. The right ovary measures 3.5 x 2.4 x 3.4 cm and is unremarkable. The left ovary measures 3 x 1.7 x 2.3 cm and is unremarkable. Color flow and spectral analysis demonstrates normal arterial flow in both ovaries and normal venous flow in the left ovary. No adnexal mass seen. Small amount of free fluid in cul-de-sac. IMPRESSION: Small amount of free fluid in cul-de-sac which may be physiologic. Otherwise unremarkable examination. Please see above. RPTAT: HJES .Booker Mccormick MD, MD Date Time Electronically viewed and signed by .Booker Mccormick MD, MD on 01/14/2017 01:14 .S/ CC: JEAN PIERRE HOLLAND PR SPECIALIST Procedures/[facility] Medical Decision Making: Patient symptoms of pelvic pain nonspecific at this time, possible musculoskeletal pain. There is low suspicion for abdominal emergencies at this time. Patients abdominal exam is normal at this time. Patients radiology exam does not show any abdominal emergencies at this time. There is low suspicion for appendicitis, cholecystitis, abdominal aortic aneurysms or peritonitis at this time. There is low suspicion for sepsis. Patient appears well and is hemodynamically stable. Disposition: Home. Condition: Stable Prescription ibuprofen, [place]. Instructions: Patient is advised to take medications as prescribed. Patient is advised to rest, increase fluid intake and do brat diet for next 1-2 days and progress as tolerated. Patient is advised that if symptoms are worse, severe abdominal pain, uncontrolled vomiting, high fever, severe flank pain, worst signs and symptoms, to return to the emergency department immediately. Otherwise, patient can follow up with primary care doctor in 5-7 days. Disclaimer: Inadvertent spelling and grammatical errors are likely due to EHR/ dictation software use and do not reflect on the overall quality of patient care. Also, please note that the electronic time recorded on this note does not necessarily reflect the actual time of the patient encounter. Departure Diagnosis: Primary Impression: Pelvic pain Condition: Stable Patient Instructions: Pelvic Pain, Unknown Cause Additional Instructions: Patient is advised to take medications as prescribed. Patient is advised to rest, increase fluid intake and do brat diet for next 1-2 days and progress as tolerated. Patient is advised that if symptoms are worse, severe abdominal pain , uncontrolled vomiting, high fever, severe flank pain, worst signs and symptoms , to return to the emergency department immediately. Otherwise, patient can follow up with primary care doctor in 5-7 days. JEAN PIERRE HOLLAND NP Jan 14, 2017 00:37
[2017-01-14 00:53] LABS: BASOPHILS % 0.4 % (0.0-2.0); EOSINOPHILS # 0.2 10^3/ul (0.0-0.5); EOSINOPHILS % 1.6 % (0.0-7.0); HEMOGLOBIN 11.6 g/dl (12.0-16.0); LYMPHOCYTES # 2.5 10^3/ul (0.8-2.9); LYMPHOCYTES % 24.6 % (15.0-51.0); MEAN CORPUSCULAR HEMOGLOBIN 30.3 pg (29.0-33.0); MEAN CORPUSCULAR HGB CONC 34.1 g/dl (32.0-37.0); MEAN CORPUSCULAR VOLUME 88.8 fl (82.0-101.0); MEAN PLATELET VOLUME 11.3 fl (7.4-10.4); MONOCYTE # 0.7 10^3/ul (0.3-0.9); NEUTROPHIL # 6.8 10^3/ul (1.6-7.5); NEUTROPHILS % 65.8 % (39.0-77.0); PLATELET COUNT 265 10^3/UL (140-415); RED BLOOD COUNT 3.83 10^6/ul (4.20-5.40); RED CELL DISTRIBUTION WIDTH 12.1 % (11.5-14.5); WHITE BLOOD COUNT 10.3 10^3/ul (4.8-10.8)
--- NOTE | 2017-01-14 01:14 | RADRPT ---
PROCEDURE: US Pelvis. CLINICAL INDICATION: Abdominal pain. Last menstrual period 01/02/2017 TECHNIQUE: Multiple sonographic images of the pelvis were obtained utilizing a transabdominal and endovaginal technique. The images were reviewed on a PACS workstation. COMPARISON: None. FINDINGS: The uterus measures 8 x 4.4 x 6.1 cm and is unremarkable. The thickness of the endometrium equals 3. 1 mm. The right ovary measures 3.5 x 2.4 x 3.4 cm and is unremarkable. The left ovary measures 3 x 1.7 x 2.3 cm and is unremarkable. Color flow and spectral analysis demonstrates normal arterial amaury w in both ovaries and normal venous flow in the left ovary. No adnexal mass seen. Small amount of f ree fluid in cul-de-sac. IMPRESSION: Small amount of free fluid in cul-de-sac which may be physiologic. Otherwise unremarkable examinatio n. Please see above. RPTAT: HJES .Booker Mccormick MD, MD Date Time Electronically viewed and signed by .Booker Mccormick MD, on 01/14/2017 01:14 .S/
[2017-01-14 01:43] LABS: ALBUMIN 4.5 g/dl (3.3-4.9); ALBUMIN/GLOBULIN RATIO 1.21; BILIRUBIN,INDIRECT 0.4 mg/dl (0-1.1); BILIRUBIN,TOTAL 0.4 mg/dl (0.2-1.3); CREATININE 0.64 mg/dl (0.44-1.00); POTASSIUM 3.9 mmol/L (3.5-5.1); TOTAL PROTEIN 8.2 g/dl (6.1-8.1)
--- NOTE | 2017-01-14 01:49 | RADRPT ---
PROCEDURE: CT Abdomen and pelvis without contrast. CLINICAL INDICATION: Abdominal pain. TECHNIQUE: CT scan of the abdomen and pelvis was performed on a multi-detector high-resolution CT scanner. Contiguous axial images were obtained from the lung bases to the ischial tuberosities wit hout intravenous contrast. Coronal and sagittal reformatted images were also obtained. Images were reviewed on the PACS workstation. DICOM images are available. One or more of the following dose reduction techniques were used: - Automated exposure control. - Adjustment of the mA and/or kV according to patient size. - Use of iterative reconstruction technique. Exam CTD/vol = 22.73 mGy. Total exam DLP = 1334.05 mGy-cm. COMPARISON: None. FINDINGS: Evaluation of the lung bases demonstrates no pleural or parenchymal disease. Abdomen: The liver is normal in size. There is no focal mass or dilatation of the biliary tree. T he gallbladder is not distended. The spleen, pancreas and bilateral adrenal glands are within valery l limits. Bilateral kidneys are normal in size with no contour deforming mass identified. There is no radiopaque renal or ureteral calculus identified. There is no hydronephrosis or hydroureter. T here is no retroperitoneal adenopathy. The abdominal aorta is of normal caliber. There is no abnormal bowel wall thickening or distension. There is no bowel obstruction or free air . A normal appendix is partially visualized. There is no diverticulosis or diverticulitis. There is no ascites. Pelvis: The bladder is unremarkable. The uterus and adnexa are within normal limits. There is no significant pelvic adenopathy or free fluid. Evaluation of the osseous structures demonstrates no suspicious lytic or blastic lesion. IMPRESSION: No acute abnormality identified within the abdomen and pelvis. .Payam Rosas MD, MD Date Time Electronically viewed and signed by .Payam Rosas MD, MD on 01/14/2017 01:49 .T/
[2017-01-14 02:21] LABS: ADD UMIC NO; UR ASCORBIC ACID NEGATIVE (NEGATIVE); UR BACTERIA FEW /HPF (NONE SEEN); UR BILIRUBIN (Dip) NEGATIVE (NEGATIVE); UR BLOOD (Dip) NEGATIVE (NEGATIVE); UR CLARITY CLEAR (CLEAR); UR COLOR YELLOW (YELLOW); UR GLUCOSE (Dip) NEGATIVE (NEGATIVE); UR KETONES (Dip) NEGATIVE (NEGATIVE); UR LEUKOCYTE ESTERASE (Dip) NEGATIVE Leu/ul (NEGATIVE); UR NITRITE (Dip) NEGATIVE (NEGATIVE); UR RBC 1 /HPF (0-5); UR TOTAL PROTEIN (Dip) NEGATIVE (NEGATIVE); UR UROBILINOGEN (Dip) NEGATIVE (NEGATIVE)
[2017-01-14] MEDS ORDERED: IBUP-1542 PO (02:42)
[2017-01-14] MEDS ORDERED: HYDR-906 PO (02:42)
[2017-01-14 03:00] VITALS: BP 125/68; PULSE 77; RESP 18; TEMP 98.3
== END 2017-01-14 03:03 | disposition home or self-care (01) ==
LOC: FTE 22:15
DX: R10.2 Pelvic and perineal pain (principal)
CPT/HCPCS: 36415; 74176; 76830; 76856; 80053; 81003; 83690; 85025

== ENCOUNTER 2017-01-27 18:18 | Emergency (ER) | payer OTHER ==
[~2017-01-27] VITALS: Ht 167.6 cm; Wt 102.4 kg
[~2017-01-27 18:18] MED LIST changes: +HYDR-906 PO
[2017-01-27 18:48] VITALS: Ht 167.6 cm; Wt 102.4 kg
[2017-01-27] MEDS ORDERED: DIPHTH/TET/ACEL PERTUSS (ADULT) 0.5 ML VIAL IM* ONE (20:30)
--- NOTE | 2017-01-27 21:30 | ERD ---
ER Documentation Chief Complaint Chief Complaint Pt reports laceration to L index finger 1 hour ago HPI This is a 21-year-old female presenting to the emergency department with a superficial laceration to her left distal index finger status post cutting tomatoes couple hours prior to being seen. Patient does not remember last tetanus. She has full range of motion. Patient states that her last menstrual period was January 02 and she think she is ROS All systems reviewed and are negative except as per history of present illness. Medications Home Meds Active Scripts Hydrocodone/Acetaminophen ([place] 5-325 Tablet) 1 Each Tablet, 1 TAB PO Q6H Y for SEVERE PAIN LEVEL 7-10, #20 TAB Prov:JEAN PIERRE HOLLAND MELTER CLERK 01/14/17 Ibuprofen* (Motrin*) 600 Mg Tab, 600 MG PO Q6H Y for PAIN AND OR ELEVATED TEMP, #30 TAB Prov:JEAN PIERRE HOLLAND MELTER CLERK 01/14/17 Fexofenadine Hcl* (Tisha*) 180 Mg Tablet, 180 MG PO DAILY, #30 TAB Prov:SAVITA NOVA 11/02/16 Fluticasone Propionate (Flonase Allergy Relief) 9.9 Ml [place].susp, 1 SPRAY NASAL BID, #1 BOTTLE TO EACH NOSTRIL Prov:SAVITA NOVA 11/02/16 Acetaminophen* (Tylenol*) 500 Mg Tab, 1000 MG PO Q6H Y for PAIN AND OR ELEVATED TEMP for 5 Days, TAB Prov:SAVITA NOVA 11/02/16 Ibuprofen* (Motrin*) 600 Mg Tab, 600 MG PO Q6, #30 TAB Prov:ZANDER MICHELLE PA-C 10/16/16 Amoxicillin* (Amoxicillin*) 500 Mg Cap, 500 MG PO TID for 7 Days, CAP Prov:ZANDER MICHELLE PA-C 10/16/16 Allergies Allergies: Coded Allergies: No Known Allergy (Unverified , 01/13/17) PMhx/Soc Medical and Surgical Hx: pt denies Medical Hx, pt denies Surgical Hx Anesthesia Reaction: No Hx Neurological Disorder: No Hx Respiratory Disorders: No Hx Cardiac Disorders: No Hx Psychiatric Problems: No Hx Miscellaneous Medical Probl: No Hx Alcohol Use: Yes (occassional) Hx Substance Use: No Hx Tobacco Use: No Smoking Status: Never smoker Physical Exam Vitals Vital Signs Date Time Temp Pulse Resp B/P Pulse Ox O2 Delivery O2 Flow Rate FiO2 01/27/17 18:48 98.6 111 16 138/70 100 Physical Exam Const: WDWN Head: Atraumatic Eyes: Normal Conjunctiva ENT: Normal External Ears, Nose and Mouth. Neck: Full range of motion..~ No meningismus. Resp: Clear to auscultation bilaterally Cardio: Regular rate and rhythm, no murmurs Abd: Soft, non tender, non distended. Normal bowel sounds Skin: Superficial 0.5 cm laceration Back: No midline or flank tenderness Ext: No cyanosis, or edema Neur: Awake and alert Psych: Normal Mood and Affect Results 24 hrs Current Medications Medications (Trade) Dose Ordered Sig/Gui Route PRN Reason Start Time Stop Time Status Last Admin Dose Admin Diphtheria/ Tetanus/Acell Pertussis (Adacel) 0.5 ml ONCE ONCE IM* 01/27/17 20:30 01/27/17 20:31 DC 01/27/17 21:12 Procedures/MDM This is a 21-year-old female presenting to the emergency department with a superficial laceration to the left distal index finger which is so superficial and does not need any suturing. There was no active bleeding, foreign body. Patient has full range of motion of her finger. Patient does not remember her last tetanus and was updated today. She stable to be discharged home Departure Diagnosis: Primary Impression: Laceration Condition: Stable Patient Instructions: Yadi Fofana NUSHA N. PA-C Jan 27, 2017 21:30
== END 2017-01-27 21:26 | disposition home or self-care (01) ==
LOC: FTE 18:18
DX: S61.211A Laceration without foreign body of left index finger without damage to nail, initial encounter (principal); W26.8XXA Contact with other sharp object(s), not elsewhere classified, initial encounter; Y92.9 Unspecified place or not applicable; Z23 Encounter for immunization
CPT/HCPCS: 90471; 90715; Z7502

== ENCOUNTER 2017-03-04 23:47 | Emergency (ER) | END 2017-03-05 02:45 | disposition home or self-care (01) ==

== ENCOUNTER 2017-03-13 09:06 | Emergency (ER) | END 2017-03-13 12:39 | disposition home or self-care (01) ==

== ENCOUNTER 2017-06-23 16:15 | Emergency (ER) | END 2017-06-23 17:24 | disposition home or self-care (01) ==